=== PATIENT | female | born 1975 | race Caucasian/White ===

== ENCOUNTER 2023-03-04 14:18 | Emergency (ER) | payer OTHER ==
[~2023-03-04] VITALS: Ht 170.2 cm; Wt 70.3 kg
[2023-03-04 14:25] VITALS: BP_SYST 154; PULSE 89; RESP 19; TEMP 97.8; O2SAT 99
[2023-03-04] MEDS ORDERED: IBUP-1969 PO (15:28)
[2023-03-04] MEDS ORDERED: IBUPROFEN 600 MG TABLET PO ONE (15:30)
== END 2023-03-04 15:55 | disposition home or self-care (01) ==
LOC: SED 14:18
DX: S70.11XA Contusion of right thigh, initial encounter (principal); S80.11XA Contusion of right lower leg, initial encounter; S00.81XA Abrasion of other part of head, initial encounter; S40.812A Abrasion of left upper arm, initial encounter; Z79.899 Other long term (current) drug therapy; V89.2XXA Person injured in unspecified motor-vehicle accident, traffic, initial encounter; Y93.89 Activity, other specified; Y92.89 Other specified places as the place of occurrence of the external cause; Y99.8 Other external cause status
CPT/HCPCS: 99282